=== PATIENT | male | born 1960 | race Caucasian/White ===

== ENCOUNTER 2022-06-15 14:22 | Emergency (ER) | payer MEDICARE, MEDICAID ==
[~2022-06-15] VITALS: Ht 172.7 cm; Wt 73.0 kg
[2022-06-15 15:26] LABS: BASOPHILS % 0.4 % (0.0-2.0); EOSINOPHILS % 3.8 % (0.0-5.0); HEMATOCRIT. 37.3 % (42.0-52.0); HEMOGLOBIN. 12.5 g/dL (14.0-18.0); LYMPHOCYTES % 38.1 % (20.0-50.0); MEAN CORPUSCULAR VOLUME 89.3 fL (80.0-94.0); MEAN PLATELET VOLUME 9.4 fl (7.4-10.4); NEUTROPHILS % 44.7 % (40.0-76.0); PLATELET 195 x1000/uL (130-400); RED BLOOD CELL COUNT 4.17 mill/uL (4.7-6.1); RED CELL DISTRIBUTION WIDTH 13.5 % (11.6-14.6)
[2022-06-15] MEDS ORDERED: IBUPROFEN 600MG TABLET PO STA (15:26)
[2022-06-15 15:33] LABS: CHLORIDE 107 mEq/L (98-107); CLARITY URINE CLEAR (CLEAR); COLOR URINE DARK YELLOW (YELLOW); KETONES URINE TRACE (NEGATIVE); LEUKOCYTE ESTERASE URINE NEGATIVE (NEGATIVE); NITRITE URINE NEGATIVE (NEGATIVE); OCCULT BLOOD URINE 1+ (NEGATIVE); PROTEIN URINE TRACE (NEGATIVE); SPECIFIC GRAVITY URINE 1.033 (1.005-1.030)
[2022-06-15] MEDS ORDERED: MORPHINE SULFATE 10 MG/ML CPJ IM STA (17:17)
[2022-06-15 17:29] VITALS: BP 124/61
[2022-06-15] MEDS ORDERED: DOXYCYCLINE HYCLATE 100MG CAPSULE PO STA (17:54)
[2022-06-15] MEDS ORDERED: NAPR-681 PO (18:04)
[2022-06-15] MEDS ORDERED: DOXY100T28 MT (18:04)
[2022-06-15] MEDS ORDERED: BO1 TP (18:04)
== END 2022-06-15 19:00 | disposition home or self-care (01) ==
LOC: ER 14:22
DX: N47.2 Paraphimosis (principal); N48.1 Balanitis; J44.9 Chronic obstructive pulmonary disease, unspecified; F20.9 Schizophrenia, unspecified; Z88.0 Allergy status to penicillin
CPT/HCPCS: 36415; 80053; 81003; 85025; 99283

== ENCOUNTER 2024-05-15 03:05 | Emergency (ER) | payer MEDICARE, MEDICAID ==
[~2024-05-15] VITALS: Ht 170.2 cm; Wt 73.0 kg
[~2024-05-15 03:05] MED LIST: BO1 TP; DOXY100T28 MT; NAPR-681 PO
[2024-05-15 03:14] VITALS: BP 132/79; PULSE 98; RESP 18; TEMP 97.4; O2SAT 99
[2024-05-15] MEDS: ACETAMINOPHEN 325MG TABLET PO STA (03:56)
[2024-05-15] MEDS: LIDOCAINE HCL/PF 1% 10 MG/ML 5ML VIAL INFIL ONE (04:00)
[2024-05-15] MEDS: BACITRACIN ZINC OINT UDPKT TOP ONE (05:17)
[2024-05-15] MEDS: TETANUS, DIPHTHERIA, PERTUSSIS VAC/PF 0.5ML (>10YR OLD) IM ONE (05:19)
[2024-05-15] MEDS: OLANZAPINE 10 MG/VIAL IM ONE (06:30)
[2024-05-15] MEDS ORDERED: OLANZAPINE 5MG TABLET ODT PO ONE (06:30)
== END 2024-05-15 09:35 | disposition hospice, inpatient (51) ==
LOC: ER 03:20
DX: S01.81XA Laceration without foreign body of other part of head, initial encounter (principal); F31.9 Bipolar disorder, unspecified; F20.9 Schizophrenia, unspecified; I10 Essential (primary) hypertension; J44.9 Chronic obstructive pulmonary disease, unspecified; Z88.0 Allergy status to penicillin; W01.0XXA Fall on same level from slipping, tripping and stumbling without subsequent striking against object, initial encounter; Y93.89 Activity, other specified; Y92.89 Other specified places as the place of occurrence of the external cause; Y99.8 Other external cause status
CPT/HCPCS: 99285; 70450; 70486; 90715; 90471; J3490 ×2